=== PATIENT | female | born 2000 | race Caucasian/White ===

== ENCOUNTER 2022-11-06 18:49 | Emergency (ER) | payer MEDICAID, OTHER ==
[~2022-11-06] VITALS: Ht 167.6 cm; Wt 54.0 kg
[2022-11-06 18:52] VITALS: O2SAT 100
[2022-11-06] MEDS ORDERED: IBUPROFEN 600MG TABLET PO ONE (19:45)
[2022-11-06] MEDS ORDERED: METHOCARBAMOL 500MG TABLET PO ONE (19:45)
[2022-11-06] MEDS ORDERED: IBUP-2028 MT (20:07)
[2022-11-06 20:53] VITALS: BP 125/81; PULSE 82; RESP 19; TEMP 98.1
== END 2022-11-06 20:56 | disposition home or self-care (01) ==
LOC: ER 18:49
DX: M54.50 Low back pain, unspecified (principal); V49.59XA Passenger injured in collision with other motor vehicles in traffic accident, initial encounter; Y93.89 Activity, other specified; Y92.89 Other specified places as the place of occurrence of the external cause; Y99.8 Other external cause status
CPT/HCPCS: 81025; 99283